=== PATIENT | male | born 1945 | race Caucasian/White ===

== ENCOUNTER → 2022-12-28 | Outpatient (CLI) | payer OTHER, SELFPAY ==
--- NOTE | 2022-12-28 10:42 | ECHOCS_ITS ---
Reason For Study: CAD/ASHD Procedure This was a 2D Doppler, Color Flow transthoracic echocardiogram. The study was technically difficult. Due to body habitus. Contrast injection was performed. Exam performed in department. Left Ventricle Normal LV size. Left ventricular systolic function is normal. The estimated ejection fraction is 60 %. No regional wall motion abnormalities noted. Right Ventricle Normal RV size. Normal systolic function. Atria Normal left atrium. Mitral Valve Normal mitral valve. Tricuspid Valve The tricuspid valve is not well visualized. Mild tricuspid valve insufficiency. Pulmonary artery systolic pressure is 35 mmHg. Aortic Valve Trisinus/trileaflet aortic valve. Pulmonic Valve The pulmonic valve is not well visualized. Great Vessels Normal aortic root. The pulmonary artery is normal size. Normal inferior vena cava. Pericardium/Pleural No pericardial effusion. Medication 22 gauge I.V. with prn adaptor inserted into right arm. Diluted definity 2.0ml given slow IV push to enhance endocardial definition. MMode/2D Measurements & Calculations LVIDd: 6.2 cm IVSd: 1.0 cm Ao root diam: 3.8 cm LVIDs: 4.9 cm LVPWd: 1.1 cm FS: 20.5 % LAV(MOD-bp): 71.5 ml EDV(MOD-sp4): 128.5 ml EDV(MOD-sp2): 61.6 ml LAV(MOD-bp) Indexed: 30.9 ml/m2 ESV(MOD-sp4): 46.9 ml ESV(MOD-sp2): 28.5 ml LAV(MOD-sp2): 67.7 ml EF(MOD-sp4): 63.5 % EF(MOD-sp2): 53.8 % LAV(MOD-sp4): 65.6 ml SV(MOD-sp4): 81.7 ml SV(MOD-sp2): 33.2 ml LA A4 area: 21.2 cm2 LA dimension(2D): 4.1 cm RA A4 area: 20.0 cm2 Time Measurements MV dec time: 0.23 sec Doppler Measurements & Calculations MV E max antelmo: 77.0 cm/sec Lat Peak E' Antelmo: 8.5 cm/sec Med Peak E' Antelmo: 6.3 cm/sec MV A max antelmo: 39.1 cm/sec E/E' lat: 9.0 E/E' med: 12.2 MV E/A: 2.0 Ao V2 max: 121.8 cm/sec LV V1 max: 81.6 cm/sec MV dec slope: 339.5 cm/sec2 Ao max P.9 mmHg LV V1 max P.7 mmHg Ao V2 mean: 85.5 cm/sec LV V1 mean P.5 mmHg Ao mean P.4 mmHg LV V1 mean: 58.0 cm/sec Ao V2 VTI: 31.5 cm LV V1 VTI: 19.9 cm AV (velocity ratio): 0.63 PA V2 max: 70.4 cm/sec TR max antelmo: 276.0 cm/sec TR max P.5 mmHg ECHO/Echo Complete W/ Contrast Interpretation Summary Normal LV size. Left ventricular systolic function is normal. The estimated ejection fraction is 60 %. Mild tricuspid valve insufficiency. Contrast injection was performed. Ordering Physician: LIO VIVAR Referring Physician: Dwayne Luther Performed By: Montse Camarena, ANDRADE, RVT
== END | disposition home or self-care (01) ==
LOC: CVS 10:42
PROVIDERS: PCP Family Medicine
DX: I25.10 Atherosclerotic heart disease of native coronary artery without angina pectoris (principal)
CPT/HCPCS: 93306; Q9957; A4216; C8929

== ENCOUNTER 2024-01-11 22:59 | Observation (INO) | payer MEDICARE, BC, OTHER, SELFPAY ==
[2024-01-11 22:59] VITALS: BP 166/96; PULSE 106; RESP 21; TEMP 36.1; O2SAT 97; BMI 36.6
--- NOTE | 2024-01-11 23:08 | ED.VIS.CHEST ---
HPI History of Present Illness Chief Complaint: Chest Pain Informant: patient and spouse/S.O. Onset/Context/Timing Onset: Today Activity at onset: sudden Timing: Continuous Quality: Positive for Pain and Tightness Current Severity: Moderate Maximum Severity: Moderate Narrative Narrative: Patient presents secondary to chest pain. He reports symptoms started about a half an hour ago when he got up suddenly to go outside. He states this will sometimes happen if he moves too quickly, but usually just resolves after a short time, however tonight is more persistent. He does report some lightheadedness and dizziness. He reports chronic shortness of breath that is not any worse than baseline. Patient does have coronary artery disease history with bypass surgery in 2010 and 2 cardiac stents placed in 2016. He follows with a client experience specialist in [place]. He is currently on baby aspirin which she takes each morning. He is not on Plavix or Brilinta. [facility] Medical History (Updated 01/12/24 @ 02:[address] Lulú Wu MD) Coronary artery disease Heart disease HTN (hypertension) Hyperlipidemia Knee pain Shortness of breath Home Medications aspirin 81 mg tablet,delayed release 81 mg PO DAILY 11/24/23 [History Last Taken Unknown] diclofenac sodium 1 % topical gel 2 g topical ONCE 11/24/23 [History Last Taken Unknown] magnesium 250 mg tablet 250 mg PO DAILY 11/24/23 [History Last Taken Unknown] metoprolol tartrate 25 mg tablet 25 mg PO BID 11/24/23 [History Last Taken Unknown] multivitamin 1 tab PO DAILY 11/24/23 [History Last Taken Unknown] omeprazole 40 mg capsule,delayed release 40 mg PO QDAY 11/24/23 [History Last Taken Unknown] rosuvastatin 10 mg tablet 10 mg PO QHS 11/24/23 [History Last Taken Unknown] ipratropium bromide 21 mcg (0.03 %) nasal spray 2 spray intranasal TID PRN PRN congestion 01/12/24 [History Last Taken Unknown] eesmxkpp-pqkeyinoe-uihtpaya 3.5 mg/mL-10,000 unit/mL-0.1% eye drops 1 drp RIGHT EYE 4X/DAY 01/12/24 [History Last Taken Unknown] Allergy/AdvReac Type Severity Reaction Status Date / Time No Known Allergies Allergy Verified 01/11/24 23:03 Family History Other Heart disease Surgical History History of ankle surgery History of bilateral knee replacement History of coronary artery bypass graft History of heart artery stent Social History Smoking Status: Never smoker alcohol intake: never substance use type: does not use ROS ROS ED Constitutional Constitutional ED: Denies chills or fever(s) Eyes Eyes: Denies discharge from eye(s) ENT ENT ED: Denies discharge from eye(s), rhinorrhea or sore throat Cardiovascular Cardiovascular: Reports chest pain; Denies palpitations Respiratory/Chest Respiratory/Chest: Reports dyspnea; Denies cough Gastrointestinal Gastrointestinal: Denies abdominal pain, nausea or vomiting Musculoskeletal Musculoskeletal: Denies back pain or extremity pain Integumentary Denies Abrasions or rash Neurologic Neurologic: Denies headache(s) or weakness Psychiatric Psychiatric: Denies anxiety or depression Allergic/Immunologic Allergic/Immunologic ED: Denies lip swelling or urticaria EXAM Physical Exam Const Vital Signs: 01/11/24 22:59 01/11/24 23:06 01/11/24 23:14 Temperature 97 F L Temperature Source Temporal Pulse Rate 106 H Respiratory Rate 21 H 18 Respiratory Effort Respiratory Pattern Blood Pressure 166/96 H 147/89 H Blood Pressure Mean 119 108 Pulse Ox 97 99 Oxygen Delivery Method Room Air Room Air Room Air 01/11/24 23:17 01/11/24 23:21 01/11/24 23:30 Temperature Temperature Source Pulse Rate 99 90 Respiratory Rate 13 7 L Respiratory Effort Normal Respiratory Pattern Normal Blood Pressure 130/82 H Blood Pressure Mean 93 Pulse Ox 98 97 Oxygen Delivery Method 01/11/24 23:45 01/12/24 00:00 01/12/24 00:15 Temperature Temperature Source Pulse Rate 89 Respiratory Rate 9 L Respiratory Effort Respiratory Pattern Blood Pressure 135/72 H 132/76 H 157/86 H Blood Pressure Mean 92 91 108 Pulse Ox 96 Oxygen Delivery Method Room Air Room Air 01/12/24 00:25 01/12/24 00:30 01/12/24 00:45 Temperature Temperature Source Pulse Rate 94 88 90 Respiratory Rate 19 H 11 L 18 Respiratory Effort Respiratory Pattern Blood Pressure 123/72 H Blood Pressure Mean 87 Pulse Ox 96 96 99 Oxygen Delivery Method Room Air 01/12/24 01:00 01/12/24 01:15 01/12/24 01:30 Temperature Temperature Source Pulse Rate 92 91 88 Respiratory Rate 19 H 23 H 18 Respiratory Effort Respiratory Pattern Blood Pressure 127/75 H 120/77 Blood Pressure Mean 88 91 Pulse Ox 95 93 96 Oxygen Delivery Method Room Air 01/12/24 01:45 Temperature Temperature Source Pulse Rate 88 Respiratory Rate 19 H Respiratory Effort Respiratory Pattern Blood Pressure Blood Pressure Mean Pulse Ox 95 Oxygen Delivery Method Positive well nourished and well developed General Appearance ED: well developed HEENT Reports moist mucous membranes Eyes EOMs intact bilaterally Chest Wall inspection of chest normal and palpation of chest normal Resp normal respiratory effort and clear to auscultation bilaterally Cardio regular rhythm Rate: tachycardic GI soft to palpation and non-tender Extremity normal to inspection Neuro oriented x3 and no sensory deficits noted Sensorium / Orientation: awake and alert Psych mental status grossly normal Skin no rashes or lesions noted Heart Score History: Moderately Suspicious ECG: Normal Age: >/= 65 years Risk Factors: >/= 3 Risk Factors or History of CAD Troponin: </= Normal Limit Score: 5 MDM MDM MDM Narrative Medical decision making narrative: Patient placed on cardiac technician. IV line initiated. EKG obtained to evaluate for cardiac arrhythmia/ischemia. Labwork obtained to evaluate for leukocytosis, anemia, and electrolyte derangement. Patient given 3 baby aspirin here as he did take 1 this morning. He is given a small dose of morphine and Zofran to help with pain as well. History & Record Review Discussion w/independent historian: Patient and Significant other Additional record(s) reviewed:: Prior outpatient record and Prior labs Lab Data Attestation: I reviewed the patient's lab results. Labs: Laboratory Results - last 24 hr 01/11/24 01/12/24 23:05 01:15 WBC 6.2 RBC 4.66 Hgb 15.4 Hct 44.7 MCV 95.9 H MCH 33.0 H MCHC 34.5 RDW Std Deviation 48.7 H RDW Coeff of Minor 13.8 Plt Count 181 MPV 9.6 Immature Gran % (Auto) 0.600 Neut % (Auto) 47.3 Lymph % (Auto) 38.5 [place] % (Auto) 9.9 Eos % (Auto) 3.2 Baso % (Auto) 0.5 Absolute Neuts (auto) 2.9 Absolute Lymphs (auto) 2.37 Nucleated RBC % 0 D-Dimer Quant (PE/DVT) 1.98 H* Sodium 139 Potassium 3.3 L Chloride 108 H Carbon Dioxide 27.0 Anion Gap 4 L BUN 19 H Creatinine 0.95 Estim Creat Clear Calc 81.64 Est GFR (MDRD) Af Amer 99 Est GFR (MDRD) Non-Af 81 BUN/Creatinine Ratio 20.0 Glucose 159 H Calcium 9.2 Troponin I High Sens 6 34 Radiography Chest X-Ray - ED: 1 View, Read by ED Physician, Chronic Changes and No Infiltrates Diagnostic Testing: Clinical Impression(s) from Imaging Studies Chest X-Ray 01/11/24 23:25 IMPRESSION: No evidence of active intrathoracic disease. Electronically Signed: Marisol Bryan MD at 23:50 EDT , Chest CTA 01/12/24 23:44 IMPRESSION: No evidence of pulmonary emboli. Electronically Signed: Marisol Bryan MD at 1:00 EDT , EKG Initial EKG: Attestation: I personally reviewed and interpreted this EKG as follows: Interpretation: Sinus Tachycardia (Sinus tachycardia at 106 with incomplete right bundle. No obvious ST change.) Treatment and Re-Evaluation :: CBC was normal white count 6.2 with a hemoglobin of 15.4. Differential unremarkable. Chemistry studies reveal slightly low potassium at 3.3 and this was replaced orally. Renal function is normal. Glucose is 159. Initial troponin is 6. D-dimer returns elevated at 1.98. Portable chest x-ray per my interpretation reveals chronic changes with no focal infiltrate. Radiology interpretation reviewed and agrees. Patient does undergo CTA of the chest given his elevated D-dimer and this reveals no evidence of pulmonary embolism. 2-hour repeat troponin is obtained and troponin has risen from 6-34. While both values are still considered in the normal range, his delta is greater than 20. This is discussed with patient and at bedside. Did recommend observation for cycling of enzymes and further evaluation. I will speak with the hospitalist. At this time patient states he is chest pain-free. Discharge Plan Triage Chief Complaint: Chest Pain ED Provider: Lulú Wu Dx/Rx/DC Orders Clinical Impression: Chest pain Prescriptions: No Action rosuvastatin 10 mg tablet 10 mg PO QHS metoprolol tartrate 25 mg tablet 25 mg PO BID omeprazole 40 mg capsule,delayed release(DR/EC) 40 mg PO QDAY aspirin 81 mg tablet,delayed release (DR/EC) 81 mg PO DAILY multivitamin Tablet 1 tab PO DAILY magnesium 250 mg tablet 250 mg PO DAILY diclofenac sodium 1 % gel 2 g topical ONCE Rx Instructions: apply to single elbow, wrist or hand; for hand includes palm/fingers/back of hand neomycin-polymyxin B-dexameth 3.5mg/mL-10,000 unit/mL-0.1 % drops,suspension 1 drp RIGHT EYE 4X/DAY ipratropium bromide 21 mcg (0.03 %) spray,non-aerosol 2 spray INTRANASAL TID PRN PRN (Reason: congestion) Primary Care Provider: Dwayne Luther Referrals: Dwayne Luther MD [Primary Care Provider] - Disposition Disposition: Acute Care Hospital [facility]
[2024-01-11 23:14] VITALS: BP 147/89; RESP 18; O2SAT 99
[2024-01-11] MEDS: Ondansetron 4 MG/2 ML Vial IV (23:14)
[2024-01-11] MEDS: Morphine 4 MG/ML Syringe 2 MG IV (23:14)
[2024-01-11] MEDS: Aspirin 81 MG TAB.CHEW 243 MG PO (23:14)
[2024-01-11 23:21] VITALS: PULSE 99; RESP 13; O2SAT 98
[2024-01-11 23:22] LABS: Absolute Lymphocyte Count 2.37 X10^3/uL (0.83-4.51); Absolute Neutrophil Count 2.9 X10^3/uL (2.0-7.7); Basophil# 0.03 X10^3/uL; Basophil% 0.5 % (0-1); Eosinophils% 3.2 % (0-5); Hematocrit 44.7 % (40-54); Hemoglobin 15.4 g/dL (13.0-16.5); Lymphocyte # 2.37 X10^3/ul (0.83-4.51); Lymphocyte % 38.5 % (19-41); Mean Corp Hgb Conc 34.5 g/dL (32-36); Mean Corpuscular Volume 95.9 fL (80-94); Mean Platelet Vol. 9.6 fl (6.2-12.0); Monocyte# 0.61 X10^3/uL; Monocyte% 9.9 % (0-10); NRBC Flagged by Analyzer 0 % (0-5); Neutrophil # 2.91 X10^3/uL (2.7-7.7); Neutrophil % 47.3 % (47-70); Platelet Count 181 K/mm3 (150-450); RBC Distribution Width CV 13.8 % (11.6-14.6); RBC Distribution Width SD 48.7 fl (35.1-43.9); Red Blood Count 4.66 M/mm3 (4.6-6.2); White Blood Count 6.2 K/mm3 (4.4-11.0)
--- NOTE | 2024-01-11 23:25 | RAD_ITS ---
INDICATION: chest pain EXAMINATION/TECHNIQUE: X-RAY - XR Chest 1 View AP portable. 11:26 PM COMPARISON: None. FINDINGS: LINES/DEVICES: None. LUNGS: No consolidation. No pneumothorax. MEDIASTINUM: Unremarkable. CARDIAC SILHOUETTE: Top normal size for technique. Sternal wires. BONES AND SOFT TISSUES: No acute abnormalities. Degenerative changes in the dorsal spine. RAD/Chest 1 View (Portable) IMPRESSION: No evidence of active intrathoracic disease. Electronically Signed: Marisol Bryan MD at 23:50 EDT ,
[2024-01-11 23:30] VITALS: BP 130/82; PULSE 90; RESP 7; O2SAT 97
[2024-01-11 23:35] LABS: D-Dimer Quantitative (DVT/PE) 1.98 FEU/ug/m (0.27-0.49)
[2024-01-11 23:41] LABS: Anion Gap 4 (5-15); BUN 19 mg/dL (7-18); Calcium,Total 9.2 mg/dL (8.5-10.1); Chloride 108 mmol/L (98-107); Creatinine, Serum 0.95 mg/dL (0.70-1.30); EST Glomerular Filtration Rate 81 mL/min (>60); Est Glom Filt Rate - Afr Amer 99 mL/min (>60); Estimated Creatinine Clearance 81.64 ml/min; Glucose 159 mg/dL (74-106); Potassium 3.3 mmol/L (3.5-5.1); Sodium Level 139 mmol/L (136-145); Troponin-I HS (w/2H Reflex) 6 pg/mL (3.0-78.0)
[2024-01-11 23:45] VITALS: BP 135/72
[2024-01-12] VITALS (15 sets, daily range): BP systolic 118–157; BP diastolic 65–86; PULSE 56–94; RESP 9–23; TEMP 36.3–36.9; O2SAT 93–100; BMI 38.5
[2024-01-12] MEDS: Potassium Chloride Oral Tablet 20 MEQ 40 MEQ PO (00:40)
[2024-01-12 01:12] LABS: Reflex Troponin-HS? (from REC) Y
[2024-01-12 01:51] LABS: Troponin-I HS 34 pg/mL (3.0-78.0)
--- NOTE | 2024-01-12 02:09 | HP.PCM.HOS_ITS ---
HPI - General General Date of Admission: 01/12/24 Date of Service: 01/12/24 Chief Complaint: Chest Pain HPI Narrative ROWAN DAWN, is a 78 M with a past medical history of essential hypertension, hyperlipidemia, obesity; with BMI of 36.6 this admission, CAD; s/p CABG (2017) and 2 cardiac stents (2015) on chronic BASA followed by his ca rdiologist in [place], [facility], history of ankle surgery and osteoarthritis; with bilateral total knee replacements who presents to [facility] ER complaining of chest pain. Mr. Dawn reports his symptoms began approximately 30 minutes prior to arrival with the abrupt onset of chest pain that was substernal, tight, moderate and persistent with nothing seeming to make the pain better or worse after he tried to hurry and watch the [place] He admits to similar symptoms previously but they usually resolve after a short period of time once he rested. He also admits to chronic shortness of breath that is unchanged from previous. He states he is taking his baby aspirin every morning routinely but he is not on any other antiplatelet or anticoagulant agents. He denies associated fever, chills, nausea, vomiting, diaphoresis, palpitations or heart racing. In the ER he was noted to have an initial troponin of 6 pg/mL followed by a second troponin of 34 pg/mL (with a delta of greater than 20) as a criteria for admission under observation status complicated by an elevated D-dimer of 1.98 present on admission followed by a negative CTA of the chest for PE along with mild hypokalemia of 3.3 mmol/L present on admission and he was then admitted to the PCU under observation status for stay is expected to be less than 2 m idnights. [facility] Medical History Coronary artery disease Heart disease HTN (hypertension) Hyperlipidemia Knee pain Shortness of breath Home Medications aspirin 81 mg tablet,delayed release 81 mg PO DAILY 11/24/23 [History Last Taken Unknown] diclofenac sodium 1 % topical gel 2 g topical ONCE 11/24/23 [History Last Taken Unknown] magnesium 250 mg tablet 250 mg PO DAILY 11/24/23 [History Last Taken Unknown] metoprolol tartrate 25 mg tablet 25 mg PO BID 11/24/23 [History Last Taken Unknown] multivitamin 1 tab PO DAILY 11/24/23 [History Last Taken Unknown] omeprazole 40 mg capsule,delayed release 40 mg PO QDAY 11/24/23 [History Last Ta [place] Unknown] rosuvastatin 10 mg tablet 10 mg PO QHS 11/24/23 [History Last Taken Unknown] cholecalciferol (vitamin D3) 50 mcg (2,000 unit) tablet (D3 DOTS) 4,000 unit PO DAILY 01/12/24 [History Last Taken Unknown] Allergy/AdvReac Type Severity Reaction Status Date / Time No Known Allergies Allergy Verified 01/11/24 23:03 Family History Other Heart disease Surgical History History of ankle surgery History of bilateral knee replacement History of coronary artery bypass graft History of heart artery stent Social History Smoking Status: Never smoker alcohol intake: never substance use type: does not use ROS ROS Narrative Review of systems: General: Patient denies fever or chills. HENT: Denies headache, denies stuffy nose, denies sore throat EYES: Denies changes in vision or discharge from eyes. Resp: Patient admits to shortness of breath at rest as per HPI. Cardiac: Patient admits to chest pain as per HPI. GI: Denies abdominal pain, denies changes in bowel, had some nausea : Denies changes in urination Extremity: Denies swelling Musculoskeletal: Feels somewhat generally weak and unwell but denies arthralgias or myalgias. Neuro: Patient denies headache, paresthesias or focal neurologic weakness Heme: Denies any bleeding or bruising Skin: Denies rashes Psychiatric: No complaints voiced related to uncontrolled depression or anxiety Endocrine: No polyuria, polydipsia or polyphagia. The rest of the 14 point ROS was negative except for positives in HPI. Vital Signs Vital Signs Vital Signs: 01/11/24 22:59 01/11/24 23:06 01/11/24 23:14 Temperature 97 F L Temperature Source Temporal Pulse Rate 106 H Respiratory Rate 21 H 18 Respiratory Effort Respiratory Pattern Blood Pressure 166/96 H 147/89 H Blood Pressure Mean 119 108 Pulse Ox 97 99 Oxygen Delivery Method Room Air Room Air Room Air 01/11/24 23:17 01/11/24 23:21 01/11/24 23:30 Temperature Temperature Source Pulse Rate 99 90 Respiratory Rate 13 7 L Respiratory Effort Normal Respiratory Pattern Normal Blood Pressure 130/82 H Blood Pressure Mean 93 Pulse Ox 98 97 Oxygen Delivery Method 01/11/24 23:45 01/12/24 00:00 01/12/24 00:15 Temperature Temperature Source Pulse Rate 89 Respiratory Rate 9 L Respiratory Effort Respiratory Pattern Blood Pressure 135/72 H 132/76 H 157/86 H Blood Pressure Mean 92 91 108 Pulse Ox 96 Oxygen Delivery Method Room Air Room Air 01/12/24 00:25 01/12/24 00:30 01/12/24 00:45 Temperature Temperature Source Pulse Rate 94 88 90 Respiratory Rate 19 H 11 L 18 Respiratory Effort Respiratory Pattern Blood Pressure 123/72 H Blood Pressure Mean 87 Pulse Ox 96 96 99 Oxygen Delivery Method Room Air 01/12/24 01:00 01/12/24 01:15 01/12/24 01:30 Temperature Temperature Source Pulse Rate 92 91 88 Respiratory Rate 19 H 23 H 18 Respiratory Effort Respiratory Pattern Blood Pressure 127/75 H 120/77 Blood Pressure Mean 88 91 Pulse Ox 95 93 96 Oxygen Delivery Method Room Air 01/12/24 01:45 01/12/24 02:00 Temperature Temperature Source Pulse Rate 88 84 Respiratory Rate 19 H 23 H Respiratory Effort Respiratory Pattern Blood Pressure 151/83 H Blood Pressure Mean 100 Pulse Ox 95 97 Oxygen Delivery Method Room Air Weight Weight: 255 lb Body Mass Index (BMI) 36.6 Physical Exam Const alert, oriented x3, no apparent distress, average body habitus and healthy appearing General Appearance: cooperative HEENT normocephalic, head/scalp atraumatic, hearing grossly normal bilaterally and moist oral mucous membranes Eyes PERRL and EOMs intact bilaterally Neck no lymphadenopathy and supple Resp normal respiratory effort, no retractions, no use of accessory muscles and clear to auscultation bilaterally Cardio regular rate and regular rhythm GI normal to inspection, nondistended, normoactive bowel sounds, soft to palpation, non-tender and non-distended Extremity normal to inspection, full ROM and no clubbing, cyanosis or edema Skin Skin Narrative: Patient has no evidence of jaundice or rash. Neuro oriented x3, CN's II-XII intact bilaterally, moves all extremities and no focal motor deficits Sensorium / Orientation: awake, alert, oriented to person, oriented to place and oriented to time Speech: speech normal Motor Exam: strength 5/5 throughout Psych affect normal Results Medical Records Data Attestation: I reviewed the patient's medical records Lab / Micro Data Attestation: I reviewed the patient's lab results. 01/11/24 23:05 01/11/24 23:05 Labs: Laboratory Results - last 24 hr 01/11/24 23:05: WBC 6.2, RBC 4.66, Hgb 15.4, Hct 44.7, MCV 95.9 H, MCH 33.0 H, MCHC 34.5, RDW Std Deviation 48.7 H, RDW Coeff of Minor 13.8, Plt Count 181, MPV 9.6, Immature Gran % (Auto) 0.600, Neut % (Auto) 47.3, Lymph % (Auto) 38.5, [place] % (Auto) 9.9, Eos % (Auto) 3.2, Baso % (Auto) 0.5, Absolute Neuts (auto) 2.9, Absolute Lymphs (auto) 2.37, Nucleated RBC % 0, D-Dimer Quant (PE/DVT) 1.98 H*, Sodium 139, Potassium 3.3 L, Chloride 108 H, Carbon Dioxide 27.0, Anion Gap 4 L, BUN 19 H, Creatinine 0.95, Estim Creat Clear Calc 81.64, Est GFR (MDRD) Af Amer 99, Est GFR (MDRD) Non-Af 81, BUN/Creatinine Ratio 20.0, Glucose 159 H, Calcium 9.2, Troponin I High Sens 6 01/12/24 01:15: Troponin I High Sens 34 Imaging Radiology Impression Chest X-Ray 01/11/24 23:25 IMPRESSION: No evidence of active intrathoracic disease. Electronically Signed: Marisol Bryan MD at 23:50 EDT , Chest CTA 01/12/24 23:44 IMPRESSION: No evidence of pulmonary emboli. Electronically Signed: Marisol Bryan MD at 1:00 EDT Reading Location ID and State: [id number] Tel , Service support , Assessment & Plan Assessment/Plan (1) Chest pain: QUALIFIERS: Chest pain type: unspecified Qualified Code(s): R07.9 - Chest pain, unspecified (2) D-dimer, elevated: (3) Hypokalemia: (4) History of coronary artery bypass graft: (5) HTN (hypertension): QUALIFIERS: Hypertension type: primary hypertension Qualified Code(s): I10 - Essential (primary) hypertension (6) Hyperlipidemia: QUALIFIERS: Hyperlipidemia type: unspecified Qualified Code(s): E78.5 - Hyperlipidemia, unspecified PLAN: Plan 1. 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 Serialize troponin. Check echocardiogram to evaluate LVEF. Check Lexiscan nuclear stress test to evaluate for underlying ischemia. Give nitroglycerin as needed anginal type chest pain. Give morphine IV as needed for severe (level 6-10/10) pain. 2. Elevated D-dimer of 1.98 present on admission followed by a negative CTA of the chest for PE complicating #1 - Check lower extremity Dopplers in a.m. to ensure no signs of DVT. 3. Hypokalemia of 3.3 mmol/L present on admission compounding #1 & #2 - Give supplemental KCl and then recheck level in the a.m. to ensure improvement. 4. Essential hypertension - Resume current regimen plus give IV hydralazine as needed for systolic blood pressure greater than 160 mmHg. 5. Hyperlipidemia - Continue statin and check lipid profile in light of #1. 6. Obesity; with BMI of 36.6 this admission - Weight loss will be recommended. Check TSH. 7. GERD - Resume PPI as previous. 8. History of ankle surgery - Noted. 9. Osteoarthritis; with bilateral total knee replacements - Stable. Give Tylenol as needed for [id number] (level 1-5 out of 10) pain or fever. 10. DVT prophylaxis - Lovenox 40 mg subcu daily. Total time: Approximately 75 minutes. Charges/Coding Visit Charges OBSV E&M: 58935 Observ/hosp same date L2
[2024-01-12 05:49] LABS: Cholesterol 120 mg/dL (200); High Density Lipoprotein 34 mg/dL; Thyroid Stim Hormone (TSH) 5.46 uIU/mL (0.358-3.74); Triglycerides 126 mg/dL; Troponin-I HS 35 pg/mL (3.0-78.0); Very Low Density Lipoprotein 25 mg/dL (5-40)
[2024-01-12 08:10] LABS: Hemoglobin A1c 5.3 % (3.8-5.6)
[2024-01-12] MEDS: Cholecalciferol (VIT D3) 25 MCG TABLET (1,000 UNITS) 100 MCG PO (09:54)
[2024-01-12] MEDS: Multivitamins,Therapeutic Tablet 1 TABLET PO (09:54)
[2024-01-12] MEDS: Metoprolol Tartrate 25 MG Tablet PO (09:54)
[2024-01-12] MEDS: Aspirin E.C. 81 MG Tablet PO (09:54)
[2024-01-12] MEDS: Pantoprazole Sodium 40 MG Tablet PO (09:55)
--- NOTE | 2024-01-12 10:13 | STRESSREP_ITS ---
Stress Test Report Date: 01/12/2024 Procedure: Pharmacologic stress nuclear imaging study Indications: Chest pain Consent: Per the patient Procedure: The patient underwent pharmacologic (Regadenoson 0.4mg ) evaluation with a peak heart rate of 90 beats per minute (60%predicted maximal heart rate) and a peak blood pressure of 124/80 mmHg. The baseline ECG demonstrated sinus rhythm. The peak pharmacologic ECG demonstrated no ischemic changes. There were no cardiac dysrhythmias pretest, during pharmacologic infusion, or recovery. There was no complaint of chest discomfort during pharmacologic infusion or recovery. The patient was injected with 14.8 millicuries of technetium 99m Cardiolite and subsequently rest SPECT Cardiolite nuclear imaging was obtained in the horizontal long, vertical long, and short axis views. The patient underwent pharmacologic (Regadenoson) evaluation. The patient was injected with 45.0 millicuries of technetium 99m Cardiolite and subsequently stress SPECT Cardiolite nuclear imaging was obtained in the horizontal long, vertical long, and short axis views. A gated Cardiolite study at peak stress was obtained. The examination was stopped secondary to completion of protocol. Rest and stress SPECT Cardiolite nuclear imaging status post realignment, normalization, and attenuation correction demonstrate no fixed or reversible perfusion defects. There is end systolic thickening and brightening. The gated Cardiolite study demonstrates myocardial thickening and inward wall motion. The reported LVEF is 71%. Impression: 1. Pharmacologic (Regadenoson) evaluation 2. Peak pharmacologic ECG with no ischemic changes. 3. There were no cardiac dysrhythmias pretest, during pharmacologic infusion, or recovery. 5. Rest and stress SPECT Cardiolite nuclear imaging demonstrate relative uniform tracer uptake and myocardial perfusion appearing within normal limits. 6. The gated Cardiolite study reports an LVEF of 71%. This note was generated with [employer] software. It may contain incorrect words, spelling, and punctuation that were not noted in checking the note before signing.
--- NOTE | 2024-01-12 11:37 | DCINST_ITS ---
Discharge Instructions Diet Discharge Diet: Low fat / Low cholesterol Activity Discharge Activity: Return to Normal Activity Dressing / Incision Call your doctor if you observe: Fever of 101 or Higher, Shortness of breath, Dizziness, Fainting spells, Swelling in the ankles, Chest pain and Increased palpitations (irregular heartbeat) Follow Up Care Test Results: Test results from this visit will be discussed in further detail at your follow- up appointment, if applicable. Discharge Plan Admission Admit Date/Time: 01/12/24 02:27 Attending Provider: Terrance Deleon Primary Care Provider: Dwayne Luther Consulting Providers: Alen Stone Discharge Orders/Prescriptions Prescriptions: Continued rosuvastatin 10 mg tablet 10 mg PO QHS metoprolol tartrate 25 mg tablet 25 mg PO BID omeprazole 40 mg capsule,delayed release(DR/EC) 40 mg PO QDAY aspirin 81 mg tablet,delayed release (DR/EC) 81 mg PO DAILY multivitamin Tablet 1 tab PO DAILY magnesium 250 mg tablet 250 mg PO DAILY diclofenac sodium 1 % gel 2 g topical ONCE Rx Instructions: apply to single elbow, wrist or hand; for hand includes palm/fingers/back of hand cholecalciferol (vitamin D3) [D3 DOTS] 50 mcg (2,000 unit) tablet 4,000 unit PO DAILY Referrals / Follow Up: Dwayne Luther MD [Primary Care Provider] - Within 1 Week Disposition Disposition (needs filled in before D/C Order can be placed): Home, Self Care
--- NOTE | 2024-01-12 12:33 | NURSING ---
1216 Pt notified that an echo and venous doppler was ordered and that he can stay to get it done prior to leaving. Pt refused. Pt discharged. Taken out via wheelchair
--- NOTE | 2024-01-12 14:30 | DS.PCM_ITS ---
Providers Date of Admission: 01/12/24 Primary Care Physician: Dr. Dwayne Luther MD Reason For Visit: CHEST PAIN, ELEVATED D-DIMER AND HYPOKALEMIA Diagnosis Discharge Diagnosis (1) Chest pain: Status: Acute Code(s): R07.9 - Chest pain, unspecified Qualifiers: Chest pain type: unspecified Qualified Code(s): R07.9 - Chest pain, unspecified (2) D-dimer, elevated: Status: Acute Code(s): R79.89 - Other specified abnormal findings of blood chemistry (3) Hypokalemia: Status: Acute Code(s): E87.6 - Hypokalemia (4) History of coronary artery bypass graft: Status: Acute Code(s): Z95.1 - Presence of aortocoronary bypass graft (5) HTN (hypertension): Status: Chronic Code(s): I10 - Essential (primary) hypertension Qualifiers: Hypertension type: primary hypertension Qualified Code(s): I10 - Essential (primary) hypertension (6) Hyperlipidemia: Status: Acute Code(s): E78.5 - Hyperlipidemia, unspecified Qualifiers: Hyperlipidemia type: unspecified Qualified Code(s): E78.5 - Hyperlipidemia, unspecified Medications at Discharge Home Medications aspirin 81 mg tablet,delayed release 81 mg PO DAILY 11/24/23 diclofenac sodium 1 % topical gel 2 g topical ONCE 11/24/23 magnesium 250 mg tablet 250 mg PO DAILY 11/24/23 metoprolol tartrate 25 mg tablet 25 mg PO BID 11/24/23 multivitamin 1 tab PO DAILY 11/24/23 omeprazole 40 mg capsule,delayed release 40 mg PO QDAY 11/24/23 rosuvastatin 10 mg tablet 10 mg PO QHS 11/24/23 cholecalciferol (vitamin D3) 50 mcg (2,000 unit) tablet (D3 DOTS) 4,000 unit PO DAILY 01/12/24 Hospital Course Operations None Procedures Nuclear stress test Summary of Care Provided Minutes Spent on Discharge: 33 Hospital Course: Per HPI: ROWAN BELLO, is a 78 M with a past medical history of essential hypertension, hyperlipidemia, obesity; with BMI of 36.6 this admission, CAD; s/p CABG (2016) and 2 cardiac stents (2015) on chronic BASA 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 Mr. Bello reports his symptoms began approximately 30 minutes prior to arrival with the abrupt onset of chest pain that was substernal, tight, moderate and persistent with nothing seeming to make the pain better or worse after he tried to hurry and watch the [place] He admits to similar symptoms previously but they usually resolve after a short period of time once he rested. He also admits to chronic shortness of breath that is unchanged from previous. He states he is taking his baby aspirin every morning routinely but he is not on any other antiplatelet or anticoagulant agents. He denies associated fever, chills, nausea, vomiting, diaphoresis, palpitations or heart racing. In the ER he was noted to have an initial troponin of 6 pg/mL followed by a second troponin of 34 pg/mL (with a delta of greater than 20) as a criteria for admission under observation status complicated by an elevated D-dimer of 1.98 p resent on admission followed by a negative CTA of the chest for PE along with mild hypokalemia of 3.3 mmol/L present on admission and he was then admitted to the PCU under observation status for stay is expected to be less than 2 midnights. Hospital Course: 1. Chest pain/CAD status post CABG/essential HTN/HLD?78-year-old male with a history of coronary artery disease status post CABG presented to the hospital with chest pain. He was found to have an elevated D-dimer and CTA on admission was negative for PE. He denies any unilateral lower extremity edema or calf beatriz n however a Doppler ultrasound was ordered as well as a stress test and an echo. The stress test was unremarkable and he had a family reunion planned for today and tomorrow and he did not want to stay for the echo or the Doppler. I discussed with him the risks of this decision he expressed understanding of the risk and benefits and would like to go home today. He is already on an aspirin as well as Crestor, and metoprolol so he was discharged on his medications without any changes. I do recommend that he follow-up with his PCP in 3 to 5 days and if he does develop calf pain or repeated chest pain with activity that he is to return to the hospital, he acknowledged this as did his . Physical Exam Narrative General: Alert, Oriented x3, Cooperative, No apparent distress HEENT: Atraumatic, PERRLA, EOMI, Normocephalic Oral: Moist Mucosa Neck: Supple, No JVD Lungs: Clear to auscultation, Normal air movement, No rhonchi, No wheeze, No rales Cardiovascular: Regular rate, Regular Rhythm, Normal S1, Normal S2, No murmurs Abdomen: Soft, Non Tender, Non-Distended, No Hepato-splenomegaly Extremities: Nonpitting edema, Capillary Refill Less than 3 Seconds Skin: No rashes, No breakdown Musculoskeletal: No Tenderness to Palpation of Joints or Extremities Neurological: No focal neurological deficits, Motor Exam 5/5 strength throughout, Sensory exam intact to light touch and pain Psych/Mental Status: Normal Affect, Appropriate Weight / BMI Weight Weight: 260 lb 12.909 oz Body Mass Index (BMI) 38.5 ABG / Lab / Microbiology Data 01/11/24 23:05 01/11/24 23:05 Laboratory: Laboratory Results - last 24 hr 01/11/24 23:05: WBC 6.2, RBC 4.66, Hgb 15.4, Hct 44.7, MCV 95.9 H, MCH 33.0 H, MCHC 34.5, RDW Std Deviation 48.7 H, RDW Coeff of Minor 13.8, Plt Count 181, MPV 9.6, Immature Gran % (Auto) 0.600, Neut % (Auto) 47.3, Lymph % (Auto) 38.5, Schuyler % (Auto) 9.9, Eos % (Auto) 3.2, Baso % (Auto) 0.5, Absolute Neuts (auto) 2.9, Absolute Lymphs (auto) 2.37, Nucleated RBC % 0, D-Dimer Quant (PE/DVT) 1.98 H*, Sodium 139, Potassium 3.3 L, Chloride 108 H, Carbon Dioxide 27.0, Anion Gap 4 L, BUN 19 H, Creatinine 0.95, Estim Creat Clear Calc 81.64, Est GFR (MDRD) Af Amer 99, Est GFR (MDRD) Non-Af 81, BUN/Creatinine Ratio 20.0, Glucose 159 H, Hemo globin A1c 5.3, Calcium 9.2, Troponin I High Sens 6 01/12/24 01:15: Troponin I High Sens 34 01/12/24 05:10: Troponin I High Sens 35, Triglycerides 126 01/12/24 05:10: Triglycerides Cancelled, Cholesterol 120 01/12/24 05:10: Cholesterol Cancelled, LDL Cholesterol 61 01/12/24 05:10: LDL Cholesterol Cancelled, VLDL Cholesterol 25 01/12/24 05:10: VLDL Cholesterol Cancelled, HDL Cholesterol 34 L 01/12/24 05:10: HDL Cholesterol Cancelled, TSH 5.46 H 01/12/24 05:10: TSH Cancelled Radiography Diagnostic Testing: Radiology Impression Chest X-Ray 01/11/24 23:25 IMPRESSION: No evidence of active intrathoracic disease. Electronically Signed: Marisol Bryan MD at 23:50 EDT , Chest CTA 01/12/24 23:44 IMPRESSION: No evidence of pulmonary emboli. Electronically Signed: Marisol Bryan MD at 1:00 EDT , D/C Instructions Discharge Diet: Low fat / Low cholesterol Call your doctor if you observe: Fever of 101 or Higher, Shortness of breath, Dizziness, Fainting spells, Swelling in the ankles, Chest pain and Increased palpitations (irregular heartbeat) Meaningful Use Info Meaningful Use Meaningful Use Diagnoses (Choose all that apply): None applicable Ischemic Stroke Statin Dosing Therapy Reference: STATIN DOSE THERAPY REFERENCE: * Patients > 75 years receive moderate or high dose statin therapy. * Patients 75 years or YOUNGER should receive HIGH intensity statin dose unless contraindicated. You will be required to document reason for non-treatment if statin daily dose does not meet guidelines. HIGH DOSE STATIN THERAPY DAILY Atorvastatin > than or = to 40 mg Rosuvastatin > than or = to 20 mg Amlodipine + Atorvastatin > than or = to 2.5/40 mg Ezetimibe + Simvastatin 10/80 mg Simvastatin 80mg Discharge Plan Admission Admit Date/Time: 05/11/24 02:27 Attending Provider: Terrance Deleon Primary Care Provider: Dwayne Luther Consulting Providers: Rowan Stone Discharge Orders/Prescriptions Prescriptions: Continued rosuvastatin 10 mg tablet 10 mg PO QHS metoprolol tartrate 25 mg tablet 25 mg PO BID omeprazole 40 mg capsule,delayed release(DR/EC) 40 mg PO QDAY aspirin 81 mg tablet,delayed release (DR/EC) 81 mg PO DAILY multivitamin Tablet 1 tab PO DAILY magnesium 250 mg tablet 250 mg PO DAILY diclofenac sodium 1 % gel 2 g topical ONCE Rx Instructions: apply to single elbow, wrist or hand; for hand includes palm/fingers/back of hand cholecalciferol (vitamin D3) [D3 DOTS] 50 mcg (2,000 unit) tablet 4,000 unit PO DAILY Referrals / Follow Up: Dwayne Luther MD [Primary Care Provider] - Within 1 Week Disposition Disposition (needs filled in before D/C Order can be placed): Home, Self Care Charges/Coding Visit Charges Inpatient E&M: 38077 Disch Hosp >30min
--- NOTE | 2024-01-12 23:44 | CT_ITS ---
STUDY: CTA CHEST REASON FOR EXAM: Male, 78 years old. pulmonary embolism RADIATION DOSAGE (If Supplied By Facility): CTDIvol = ( 26.50 ) mGy, DLP = ( 730.13 ) mGycm TECHNIQUE: The examination was performed with the intravenous administration of IV 100mL Isovue-370. Post-processing of the angiographic images was performed, with multiplanar reformation and 3D reconstruction. Individualized dose optimization techniques were used for this CT. COMPARISON: None. FINDINGS: LUNGS: No consolidation. PLEURA: No pleural effusion. No pneumothorax. PULMONARY VESSELS: No pulmonary emboli identified. MEDIASTINUM: Unremarkable. HEART: Enlarged. Sternal wires. AORTA/GREAT VESSELS: Thoracic aorta is normal caliber. No aneurysm or dissection. UPPER ABDOMEN: No acute findings. Gallstones in the gallbladder. BONES/SOFT TISSUES: No acute findings. OTHER: None. CT/CTA Chest W/WO Contrast IMPRESSION: No evidence of pulmonary emboli. Electronically Signed: Marisol Bryan MD at 1:00 EDT ,
== END 2024-01-12 12:20 | disposition home or self-care (01) ==
LOC: ED 01-12 02:04 → ICU 01-12 04:55
PROVIDERS: Admitting Provider Internal Medicine; Emergency Provider Emergency Medicine; PCP Family Medicine; Visit Provider Family Medicine
DX: R07.89 Other chest pain (principal); E87.6 Hypokalemia; I10 Essential (primary) hypertension; Z79.82 Long term (current) use of aspirin; R79.89 Other specified abnormal findings of blood chemistry; I25.10 Atherosclerotic heart disease of native coronary artery without angina pectoris; K21.9 Gastro-esophageal reflux disease without esophagitis; E78.5 Hyperlipidemia, unspecified; R06.02 Shortness of breath; Z95.5 Presence of coronary angioplasty implant and graft; R42 Dizziness and giddiness; Z95.1 Presence of aortocoronary bypass graft; Z79.899 Other long term (current) drug therapy; E66.9 Obesity, unspecified; Z68.36 Body mass index [BMI] 36.0-36.9, adult
CPT/HCPCS: 71045; 71275; 78452; 80048; 80061; 83036; 84443; 84484; 85025; 85379; 93005; 93017; 96374; 96375; 99221; 99285; A9500; Q9967; A4216; G0378; J2405; J2785

== ENCOUNTER 2024-11-10 09:00 | Outpatient (RCR) | payer MEDICARE, BC, OTHER, SELFPAY ==
--- NOTE | 2024-04-29 16:47 | HP.PTEVAL ---
Patient's Visit Information Visit Information Visit Information: ROWAN DAWN is a 79 year old M referred to Physical Therapy by ROSA CALI with a diagnosis of R TKA Revision 04/07/24. Date of Evaluation: 04/29/24 Physical Therapist: Ross Sosa, PT, ATC Visit Plan Frequency: 2x /Week Duration: 2 Weeks Plan: R LE stretching and strengthening, balance and proprio, gait training, sit to stand training, nustep, and HEP Subjective Subjective: DOS: 04/07/24. Pt reports he had a R knee TKA revision performed at that time. Pt reports he had a R TKA performed in 2008 which eventually wore out. Pt reports he had Home health for 2 weeks secondary to his pain and instability. Pt reports he is doing much better now. Pt reports he has been using his cane all day today, which is the first full day he has used his cane since surgery. Pt reports sleep difficulty at this time secondary to R knee pain. Pt denies tingling or numbness in his LE's at this time. 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 Pt reports he has stairs at home, and is able to negotiate them one step at a time. Pt notes he is limited with all yard work at this time. 1/10 pain while sitting here at rest, 4/10 pain at worst. Pain R TKA: Pain Intensity (Out of 10): 1 Pain Intensity Range: 4 Objective Objective: Neuro: B LE sensation is WNL to light touch Girth at joint line: R knee 50 cm, L knee 45 cm TU seconds sit to stand: 6 reps in 30 sec ROM: L knee 0-7-117, R knee 0-15-112 degrees MMT: L knee flex= 34, ext= 22 #F; R knee flex= 49, ext= 48 #F Balance/Special Test Scores Lower Extremity Functional Score: 26 Goals Goal 1:: I with HEP Goal Time Frame: 2 Weeks Rehabilitation Potential Physical Therapy Diagnosis: R knee pain, weakness, and limited ROM secondary to R TKA Rehabilitation Potential: Good Anticipated Interventions Patient/Client Instruction: Educate patient on: Condition For the Purpose of:: To improve self management Therapeutic Exercise to Include: Strength training, Endurance training, Balance training, Flexibilty training, Gait and locomotor training, Passive ROM, Active ROM and Dynamic Lumbar Stabilization For the Purpose of:: To decrease pain, To increase ROM and To improve muscle performance and motor function Cryotherapy (ice pack, ice massage): Yes For the Purpose of:: To decrease pain Text: Thank you for the opportunity to evaluate your patient. For Medicare and Medicare HMO plans, please review the plan of care and approve it. It will need to be FAXED BACK to us at [phone] for Medicare purposes. For Medicare only, by signing this I certify the plan of care. Please let me know if there are questions or concerns regarding this plan of care. Physician Signature: Date:
--- NOTE | 2024-06-11 09:54 | HP.PTREVAL ---
Re-Evaluation Intro: MAINOR REYES, ESTHER-C, It has been my pleasure to treat ROWAN DAWN over the last 6 visits for R TKA Revision 04/07/24. Please see the progress note below for an update on the physical therapy plan of care! Subjective Subjective: I am sore today. I am not ready to be done with PT Objective Objective/Function: R knee pain ranges from 5-8/10 R knee ROM: 0-10-110 degrees R knee MMT: flex= 40, ext= 21 #F ROM looks good at this time. Pt is still lacking strength and is in a lot of pain at this time. Plan Plan Plan: 06/11/24- Transition to machines at this time. Pt lacks gross LE strength, most notably in the quads. Focus on R LE strengthening and core strengthening at this time. Roll out R quad with the stick for pain. Balance/Gait/Functional tests Balance/Special Test Scores Lower Extremity Functional Score: 26 Goals Goals Goal 1:: I with HEP Goal Time Frame: 2 Weeks Goal Progress: Progressing Goal 2:: Increase R knee ext strength x 20#F to aid with work requirements Goal Time Frame: 4-6 Weeks Goal Progress: New goal Goal 3:: Decrease R knee pain x 50% to aid with ambulation Goal Time Frame: 4-6 Weeks Goal Progress: new goal Anticipated Interventions Anticipated Interventions Patient/Client Instruction: Educate patient on: Condition For the Purpose of:: To improve self management Therapeutic Exercise to Include: Strength training, Endurance training, Balance training, Flexibilty training, Gait and locomotor training, Passive ROM, Active ROM and Dynamic Lumbar Stabilization For the Purpose of:: To decrease pain, To increase ROM and To improve muscle performance and motor function Cryotherapy (ice pack, ice massage): Yes For the Purpose of:: To decrease pain Re-Evaluation Ending Re-evaluation ending: Please do not hesitate to contact me at [phone] by phone or if you have questions or concerns regarding this new plan of care! Sincerely, Ross Sosa, PT, ATC
--- NOTE | 2024-07-18 09:57 | HP.PTREVAL ---
Re-Evaluation Intro: MAINOR REYES, ESTHER-C, It has been my pleasure to treat ROWAN DAWN over the last 14 visits for R TKA Revision 04/07/24. Please see the progress note below for an update on the physical therapy plan of care! Subjective Subjective: I am coming along, but very slowly. Car transfers and ambulation are still rough Objective Objective/Function: R knee pain ranges from 2-8/10 R knee ROM 0-115 degrees R knee MMT: flex= 29, ext= 14 #F Pt is progressing well, but still lacks functional strength for IADL's Plan Plan Plan: 07/18/24- Continue with machines at this time. Pt lacks gross LE strength, most notably in the quads. Focus on R LE strengthening and core strengthening at this time. Roll out R quad with the stick for pain. Balance/Gait/Functional tests Balance/Special Test Scores Lower Extremity Functional Score: 32 Goals Goals Goal 1:: I with HEP Goal Time Frame: 2 Weeks Goal Progress: Progressing Goal 2:: Increase R knee ext strength x 20#F to aid with work requirements Goal Time Frame: 4-6 Weeks Goal Progress: Progressing Goal 3:: Decrease R knee pain x 50% to aid with ambulation Goal Time Frame: 4-6 Weeks Goal Progress: Progressing Anticipated Interventions Anticipated Interventions Patient/Client Instruction: Educate patient on: Condition For the Purpose of:: To improve self management Therapeutic Exercise to Include: Strength training, Endurance training, Balance training, Flexibilty training, Gait and locomotor training, Passive ROM, Active ROM and Dynamic Lumbar Stabilization For the Purpose of:: To decrease pain, To increase ROM and To improve muscle performance and motor function Cryotherapy (ice pack, ice massage): Yes For the Purpose of:: To decrease pain Re-Evaluation Ending Re-evaluation ending: Please do not hesitate to contact me at [phone] by phone or if you have questions or concerns regarding this new plan of care! Sincerely, Ross Sosa, PT, ATC
--- NOTE | 2024-08-21 10:29 | HP.PTREVAL ---
Re-Evaluation Intro: MAINOR REYES, ESTHER-C, It has been my pleasure to treat ROWAN DAWN over the last 23 visits for R TKA Revision 04/07/24. Please see the progress note below for an update on the physical therapy plan of care! Subjective Subjective: I am getting better, but I still struggle with stairs and walking down a slope. Objective Objective/Function: R knee pain ranges from 0-8/10 R knee ROM: 0-5-115 degrees R knee MMT: flex= 34, ext= 20 #F Pt is progressing well toward Rx goals, but contiues to be limited by pain and quad weakness Plan Plan Plan: 08/21/24- Discontinue knee extension machine as it produces R knee pain. Continue with machines at this time. Pt lacks gross LE strength, most notably in the quads. Focus on R LE strengthening and core strengthening at this time. Balance/Gait/Functional tests Balance/Special Test Scores Lower Extremity Functional Score: 32 WOMAC Total Score: 46 WOMAC Percentage: 52.0900 Goals Goals Goal 1:: I with HEP Goal Time Frame: 2 Weeks Goal Progress: Goal Met Goal 2:: Increase R knee ext strength x 20#F to aid with work requirements Goal Time Frame: 4-6 Weeks Goal Progress: Progressing Goal 3:: Decrease R knee pain x 50% to aid with ambulation Goal Time Frame: 4-6 Weeks Goal Progress: Progressing Goal 4:: Pt will negotiate 10 stairs reciprocally with one handrail to aid with IADL's Goal Progress: New goal Anticipated Interventions Anticipated Interventions Patient/Client Instruction: Educate patient on: Condition For the Purpose of:: To improve self management Therapeutic Exercise to Include: Strength training, Endurance training, Balance training, Flexibilty training, Gait and locomotor training, Passive ROM, Active ROM and Dynamic Lumbar Stabilization For the Purpose of:: To decrease pain, To increase ROM and To improve muscle performance and motor function Cryotherapy (ice pack, ice massage): Yes For the Purpose of:: To decrease pain Re-Evaluation Ending Re-evaluation ending: Please do not hesitate to contact me at [phone] by phone or if you have questions or concerns regarding this new plan of care! Sincerely, Ross Sosa, PT, ATC
--- NOTE | 2024-09-18 10:55 | HP.PTREVAL ---
Re-Evaluation Intro: MAINOR REYES, ESTHER-C, It has been my pleasure to treat ROWAN DAWN over the last 31 visits for R TKA Revision 04/07/24. Please see the progress note below for an update on the physical therapy plan of care! Subjective Subjective: I am still very limited with stair negotiation, and my knee really hurts today Objective Objective/Function: R knee ROM: 0-116 degrees R knee MMT: flex= 35, ext= 20 #F R knee pain ranges from 3-8/10 Pt has excellent ROM at this time, but still lacks functional strength to negotiate stairs at home. Pt also continues to have high pain at this time. Plan Plan Plan: 09/18/24- Cont with R LE strengthening with primary focus on quad strengthening Balance/Gait/Functional tests Balance/Special Test Scores Lower Extremity Functional Score: 23 WOMAC Total Score: 46 WOMAC Percentage: 52.0900 Goals Goals Goal 1:: I with HEP Goal Time Frame: 2 Weeks Goal Progress: Goal Met Goal 2:: Increase R knee ext strength x 20#F to aid with work requirements Goal Time Frame: 4-6 Weeks Goal Progress: Progressing Goal 3:: Decrease R knee pain x 50% to aid with ambulation Goal Time Frame: 4-6 Weeks Goal Progress: Progressing Goal 4:: Pt will negotiate 10 stairs reciprocally with one handrail to aid with IADL's Goal Progress: Progressing Anticipated Interventions Anticipated Interventions Patient/Client Instruction: Educate patient on: Condition For the Purpose of:: To improve self management Therapeutic Exercise to Include: Strength training, Endurance training, Balance training, Flexibilty training, Gait and locomotor training, Passive ROM, Active ROM and Dynamic Lumbar Stabilization For the Purpose of:: To decrease pain, To increase ROM and To improve muscle performance and motor function Cryotherapy (ice pack, ice massage): Yes For the Purpose of:: To decrease pain Re-Evaluation Ending Re-evaluation ending: Please do not hesitate to contact me at [phone] by phone or if you have questions or concerns regarding this new plan of care! Sincerely, Ross Sosa, PT, ATC
--- NOTE | 2024-10-13 15:35 | HP.PTREVAL ---
Re-Evaluation Intro: MAINOR REYES, ESTHER-C, It has been my pleasure to treat ROWAN DAWN over the last 38 visits for R TKA Revision 04/07/24. Please see the progress note below for an update on the physical therapy plan of care! Subjective Subjective: Pt reports he has improved a lot, but still really struggles with stairs. Objective Objective/Function: R knee pain is 0/10 currently. R knee MMT: flex= 41, ext= 29 #F R knee ROM: 0-120 degrees Pt continues to display gross weakness in R quads which results in difficulty with transfers and stair negotiation Plan Plan Plan: Recheck or discharge in one month after pt returns from vacation Balance/Gait/Functional tests Balance/Special Test Scores Lower Extremity Functional Score: 31 WOMAC Total Score: 46 WOMAC Percentage: 52.0900 Goals Goals Goal 1:: I with HEP Goal Time Frame: 2 Weeks Goal Progress: Goal Met Goal 2:: Increase R knee ext strength x 20#F to aid with work requirements Goal Time Frame: 4-6 Weeks Goal Progress: Progressing Goal 3:: Decrease R knee pain x 50% to aid with ambulation Goal Time Frame: 4-6 Weeks Goal Progress: Goal Met Goal 4:: Pt will negotiate 10 stairs reciprocally with one handrail to aid with IADL's Goal Progress: Progressing Anticipated Interventions Anticipated Interventions Patient/Client Instruction: Educate patient on: Condition For the Purpose of:: To improve self management Therapeutic Exercise to Include: Strength training, Endurance training, Balance training, Flexibilty training, Gait and locomotor training, Passive ROM, Active ROM and Dynamic Lumbar Stabilization For the Purpose of:: To decrease pain, To increase ROM and To improve muscle performance and motor function Cryotherapy (ice pack, ice massage): Yes For the Purpose of:: To decrease pain Re-Evaluation Ending Re-evaluation ending: Please do not hesitate to contact me at [phone] by phone or if you have questions or concerns regarding this new plan of care! Sincerely, Ross Sosa, PT, ATC
--- NOTE | 2024-11-10 09:29 | HP.PTREVAL ---
Re-Evaluation Intro: MAINOR REYES, ESTHER-C, It has been my pleasure to treat ROWAN DAWN over the last 39 visits for R TKA Revision 04/07/24. Please see the progress note below for an update on the physical therapy plan of care! Subjective Subjective: My knee moves well, but its still not as strong as I would like it to be Objective Objective/Function: R knee pain is 2/10 R knee ROM 0-120 degrees R knee MMT: flex= 38, ext= 32 #F Pt is showing excellent progress at this time. He is still limited with stair negotiation. Pt still lacks functional strength in quads at this time. Plan Plan Plan: 11/10/24- Transition to gym routine with focus on R LE strengthening and balance activity with a strong focus on quad strengthening. Balance/Gait/Functional tests Balance/Special Test Scores Lower Extremity Functional Score: 38 WOMAC Total Score: 46 WOMAC Percentage: 52.0900 Goals Goals Goal 1:: I with HEP Goal Time Frame: 2 Weeks Goal Progress: Goal Met Goal 2:: Increase R knee ext strength x 20#F to aid with work requirements Goal Time Frame: 4-6 Weeks Goal Progress: Progressing Goal 3:: Decrease R knee pain x 50% to aid with ambulation Goal Time Frame: 4-6 Weeks Goal Progress: Goal Met Goal 4:: Pt will negotiate 10 stairs reciprocally with one handrail to aid with IADL's Goal Progress: Progressing Anticipated Interventions Anticipated Interventions Patient/Client Instruction: Educate patient on: Condition For the Purpose of:: To improve self management Therapeutic Exercise to Include: Strength training, Endurance training, Balance training, Flexibilty training, Gait and locomotor training, Passive ROM, Active ROM and Dynamic Lumbar Stabilization For the Purpose of:: To decrease pain, To increase ROM and To improve muscle performance and motor function Cryotherapy (ice pack, ice massage): Yes For the Purpose of:: To decrease pain Re-Evaluation Ending Re-evaluation ending: Please do not hesitate to contact me at [phone] by phone or if you have questions or concerns regarding this new plan of care! Sincerely, Ross Sosa, PT, ATC
== END 2024-11-10 19:00 | disposition home or self-care (01) ==
LOC: PT 09:00
PROVIDERS: PCP Family Medicine; Referring Provider Nurse Practitioner Family; Visit Provider Nurse Practitioner Family
DX: Z96.651 Presence of right artificial knee joint (principal)
CPT/HCPCS: 97110; 97161; 97530

== ENCOUNTER 2024-12-12 09:00 | Outpatient (RCR) | payer MEDICARE, BC, OTHER, SELFPAY ==
--- NOTE | 2024-12-12 10:03 | HP.PTDCSUM ---
Discharge Summary D/C summary: It has been my pleasure to treat ROWAN DAWN referred by ROSA CALI, with the diagnosis of R TKA revision 04/07/24 for a total of 48 visit(s). Discharge Date: Please see the following information for a summary of their discharge status. Subjective Subjective: I am getting better, I still feel like i walk differently and struggle with stairs Pain R knee: Pain Intensity (Out of 10): 2 Overall Improvement % Improvement: 85 Objective Objective/Function: R knee pain ranges from 2-8/10 Stairs: Pt is able to reciprocate 10 stairs with 2 handrails R knee MMT: ext= 28 #F Pt still lacks functional strength in quads at this time Goals Goal 1:: Increase R quad strength x 20#F to aid with stair negotiation Goal Progress: Progressing Goal 2:: Pt will be able to negotiate 10 stairs reciprocally with one handrail to aid with home mobility Goal Progress: Progressing Goal 3:: I with HEP Goal Progress: Goal Met Plan Plan: Discontinue to I gym routine D/C Information d/c sentence: If there are questions or concerns regarding this patient's physical therapy, please feel free to call me at [phone]. Thank you for the referral of this patient. Sincerely, Ross Sosa, PT, ATC Balance/Gait/Functional tests Balance/Special Test Scores Lower Extremity Functional Score: 32 Improvement % Improvement: 85
== END 2024-12-12 12:12 | disposition home or self-care (01) ==
LOC: PT 09:00
PROVIDERS: PCP Family Medicine; Referring Provider Nurse Practitioner Family; Visit Provider Nurse Practitioner Family
DX: Z96.651 Presence of right artificial knee joint (principal)
CPT/HCPCS: 97110; 97530

== ENCOUNTER 2025-02-12 11:30 | Day surgery (SDC) | payer MEDICARE, BC, SELFPAY ==
--- NOTE | 2025-02-09 09:29 | PAT.ANE_ITS ---
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 When Was Last Pacemaker Check QUESTION #4 FULL TEXT: You/Your Family Experience fever (hyperthermia) with Anesthesia Last Oral Intake Last Oral intake: Last Oral Intake NPO since Meds taken in AM with sips of water? Meds patient instructed to take am of surgery PONV PONV - tilt wall supervisor: PONV - tilt wall supervisor Female No 02/09/25 08:40 HX of Motion Sickness No 02/09/25 08:40 HX of N/V After Surgery No 02/09/25 08:40 Non-Smoker Yes 02/09/25 08:40 Duration of Surgery greater No 02/09/25 08:40 than 60 minutes Number of Risk Factors 1 02/09/25 08:40 PONV Score Low Risk 02/09/25 08:40 Height & Weight Height & Weight: Anesthesia: Height & Weight Height 5 ft 9 in 01/12/24 03:14 Respiratory Assessment Respiratory Assessment - tilt wall supervisor: Respiratory Tract Infection Hx - tilt wall supervisor Hx Respiratory Tract Infection No 02/09/25 08:40 STOP Sleep Apnea STOP Sleep Apnea - tilt wall supervisor: STOP Sleep Apnea - tilt wall supervisor Hx Hypertension Yes 02/09/25 08:40 Hx Sleep Apnea Yes 02/09/25 08:40 CPAP Yes 02/09/25 08:40 BIPAP No 02/09/25 08:40 Do you snore loudly (louder than talking or can be heard Do you often feel tired/ fatigued/ sleepy during daytime? Has anyone observed you stop breathing during sleep? STOP Results Positive 02/09/25 08:40 QUESTION #5 FULL TEXT : Do you snore loudly (louder than talking or can be heard through closed doors)? 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 Specify any problems Hx of Preganancy in last 3 N/A 02/09/25 08:40 Months Nurse Filling Out Transfusion [email or web address] 02/09/25 08:40 & Questions: Date: 02/09/25 02/09/25 08:40 Time: 08:43 02/09/25 08:40 Patient unable to answer at this time (ie. confused, unrespo /Reproduction History /Reproductive History - tilt wall supervisor: /Reproductive Hx- tilt wall supervisor Hx Now No 02/09/25 08:40 Gestational Age (in weeks): EDC: Hx Hx Para Hx Section SAB No 02/09/25 08:40 PFSH Medical History (Updated 02/09/25 @ 08:55 by Taj Richardson) Wears dentures Wears glasses Cancer History of steroid therapy Easy bruising Gastric reflux Leg cramps History of edema History of echocardiogram History of stress test Cardiology follow-up encounter Skin cancer Neuropathy Bone fracture Atrial fibrillation Seasonal allergies Coronary artery disease Knee pain Shortness of breath Heart disease HTN (hypertension) Hyperlipidemia Home Medications ?Medication ?Instructions ?Recorded ?Last Taken ?Type diclofenac sodium 1 % topical gel 2 g topical ONCE Unknown History metoprolol tartrate 25 mg tablet 25 mg PO BID 11/24/23 Unknown History multivitamin 1 tab PO DAILY 11/24/23 Unkn own History omeprazole 40 mg capsule,delayed 40 mg PO QDAY 4 Unknown History release rosuvastatin 10 mg tablet 10 mg PO QHS 11/24/23 Unknow n History cholecalciferol (vitamin D3) 50 4,000 unit PO DAILY Unknown History mcg (2,000 unit) tablet (D3 DOTS) acetaminophen 500 mg tablet 500 mg PO BID 12/29/24 Unk nown History (Tylenol Extra Strength) magnesium 250 mg tablet 500 mg PO DAILY 12/29/24 Unk nown History aspirin 81 mg capsule 81 mg PO DAILY 02/09/25 Unkn own History diclofenac sodium 75 mg 75 mg PO BID 02/09/25 Unknow n History tablet,delayed release Allergy/AdvReac Type Severity Reaction Status Date / Time No Known Allergies Allergy Verified 02/09/25 08:37 Family History (Updated 12/29/24 @ 11:41 by Annabelle Toscano) Father Myocardial infarction Heart disease Mother Kidney disease Brother Heart disease Surgical History History of ankle surgery History of heart artery stent History of coronary artery bypass graft History of bilateral knee replacement Social History Smoking Status: Never smoker alcohol intake: never substance use type: does not use Audit: Pertinent Findings Pertinent Findings EKG Perinent findings: 01/12/2024. Sinus rhythm first-degree AV block. Inferior/posterior infarct, age undetermined. Stress test pertinent findings: 01/12/2024. Negative EF 71%. Echo (EF%) pertinent findings: 12/28/2022. EF 60%. Consult pertinent findings: Cardiology 01/15/2025. [facility] cardiology. Raudel. No further workup for upcoming surgery of knee. Or EGD/colonoscopy. Recommendation Anesthesia Recommendation Anesthesia recommendation: OPTIMIZED for anesthesia
[2025-02-12] VITALS (7 sets, daily range): BP systolic 102–124; BP diastolic 68–76; PULSE 49–57; RESP 16–18; TEMP 36.1–36.6; O2SAT 96–98; BMI 38.7
--- NOTE | 2025-02-12 11:47 | PRE.ANES_ITS ---
ASA Classification* ASA Classification ASA Classification: 3 Assessment & Plan Anesthesia* Anesthesia Assessment Anesthesia Assessment: Discussed sedation and/or anesthesia options, risks, benefits, and alternatives with patient/parents/legal guardian/POA. Questions invited. The patient/parents/legal guardian/POA seems to understand and agrees to proceed with anesthesia plan. Reviewed the physical assessment, medical history, allergy history and patient home medications list prior to surgery/procedure/anesthetic and documented any changes. Performed airway and anesthesia risk assessments. Anesthesia Type Anesthesia Type: MAC Anesthesia Focused Assessment* Airway Assessment Mouth opens: >3 cm Mallampati Score: II Labs Anesthesia Preop lab: CBC WBC 6.2 K/mm3 (4.4-11.0) 01/11/24 23:05 01/11/24 RBC 4.66 M/mm3 (4.6-6.2) 01/11/24 23:01/11/24 Hgb 15.4 g/dL (13.0-16.5) 01/11/24 23:01/11/24 Hct 44.7 % (40-54) 01/11/24 23:05 01/11/24 Plt Count 181 K/mm3 (150-450) 01/11/24 23:01/11/24 CHEMISTRY Potassium 3.3 mmol/L (3.5-5.1) L 01/11/24 23:05 01/11/24 Sodium 139 mmol/L (136-145) 01/11/24 23:05 01/11/24 BUN 19 mg/dL (7-18) H 01/11/24 23:05 01/11/24 Creatinine 0.95 mg/dL (0.70-1.30) 01/11/24 23:05 01/11/24 Glucose 159 mg/dL (74-106) H 01/11/24 23:01/11/24 TSH 5.46 uIU/mL (0.358-3.74) H 01/12/24:01/01 COAG Pre-Assessment Diagnosis/Proposed Procedure Planned Operative Procedure(s): colonoscopy, egd Anesthesia History 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 When Was Last Pacemaker Check QUESTION #4 FULL TEXT: You/Your Family Experience fever (hyperthermia) with Anesthesia Last Oral Intake Last Oral intake: Last Oral Intake NPO since Meds taken in AM with sips of water? 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 Female No 02/09/25 08:40 HX of Motion Sickness No 02/09/25 08:40 HX of N/V After Surgery No 02/09/25 08:40 Non-Smoker Yes 02/09/25 08:40 Duration of Surgery greater No 02/09/25 08:40 than 60 minutes Number of Risk Factors 1 02/09/25 08:40 PONV Score Low Risk 02/09/25 08:40 Height & Weight Height & Weight: Anesthesia: Height & Weight Height 5 ft 9 in 01/12/24 03:14 Respiratory Assessment Respiratory Assessment - laborer poultry hatchery: Respiratory Tract Infection Hx - laborer poultry hatchery Hx Respiratory Tract Infection No 02/09/25 08:40 STOP Sleep Apnea STOP Sleep Apnea - laborer poultry hatchery: STOP Sleep Apnea - 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 Has anyone observed you stop breathing during sleep? STOP Results Positive 02/09/25 08:40 QUESTION #5 FULL TEXT : Do you snore loudly (louder than talking or can be heard through closed doors)? 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 Specify any problems Hx of Preganancy in last 3 N/A 02/09/25 08:40 Months Nurse Filling Out Transfusion [email or web address] 02/09/25 08:40 & Questions: Date: 02/09/25 02/09/25 08:40 Time: 08:43 02/09/25 08:40 Patient unable to answer at this time (ie. 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: /Reproductive Hx- laborer poultry hatchery Hx Now No 02/09/25 08:40 Gestational Age (in weeks): EDC: Hx Hx Para Hx Section SAB No 02/09/25 08:40 Active Medications Active Medications: Current Medications Generic Name Dose Route Start Last Admin Trade Name Freq PRN Reason Stop Dose Admin Lactated Ringer's 1,000 mls @ 15 mls/hr 02/12/25 11:45 IV .Q48H KUMAR PFSH Medical History Wears dentures Wears glasses Cancer History of steroid therapy Easy bruising Gastric reflux Leg cramps History of edema History of echocardiogram History of stress test Cardiology follow-up encounter Skin cancer Neuropathy Bone fracture Atrial fibrillation Seasonal allergies Coronary artery disease Knee pain Shortness of breath Heart disease HTN (hypertension) Hyperlipidemia Home Medications ?Medication ?Instructions ?Recorded ?Last Taken ?Type diclofenac sodium 1 % topical gel 2 g topical ONCE Unknown History metoprolol tartrate 25 mg tablet 25 mg PO BID 11/24/23 02/12/25 History multivitamin 1 tab PO DAILY 11/24/23 Unkn own History omeprazole 40 mg capsule,delayed 40 mg PO QDAY 4 02/12/25 History release rosuvastatin 10 mg tablet 10 mg PO QHS 11/24/23 Unknow n History cholecalciferol (vitamin D3) 50 4,000 unit PO DAILY Unknown History mcg (2,000 unit) tablet (D3 DOTS) acetaminophen 500 mg tablet 500 mg PO BID 12/29/24 Unk nown History (Tylenol Extra Strength) magnesium 250 mg tablet 500 mg PO DAILY 12/29/24 Unk nown History aspirin 81 mg capsule 81 mg PO DAILY 02/09/2502/01 History diclofenac sodium 75 mg 75 mg PO BID 02/09/25 Unknow n History tablet,delayed release Allergy/AdvReac Type Severity Reaction Status Date / Time No Known Allergies Allergy Verified 02/12/25 11:44 Family History Father Myocardial infarction Heart disease Mother Kidney disease Brother Heart disease Surgical History History of ankle surgery History of heart artery stent History of coronary artery bypass graft History of bilateral knee replacement Social History Smoking Status: Never smoker alcohol intake: never substance use type: does not use Review of Systems (Anesthesia) ROS Narrative System reviewed and no additional complaints, except as documented.
[2025-02-12] MEDS: Lactated Ringers 1,000 ML 15 ML IV (11:53)
--- NOTE | 2025-02-12 12:30 | EGD_PTH ---
PATIENT: ROWAN DAWN LOC: EN U#:[id number] AGE/SX: 79/M ROOM: RE02/12/[address]: Dr. Sebastián Cruz DO : 1945 BED: DIS: 02/12/2025 SPEC #: [id number] RECD: 02/12/25 14:24 STATUS: AHSAN REEdvin #: [id number] GLENNY: 02/12/25 12:[address]: Sebastián Cruz DEPT: SURGICAL PATHOLOGY RECD BY: Peter Washington ENTERED: 02/12/25 14:46 SP TYPE: EGD BIOPSY JS DR: Dr. Dwayne Luther MD Tissues: A - Duodenum, NOS B - Gastric mucous membrane C - Ileum, NOS D - Cecum, NOS Procedures: Immunohistochemical Stains Surgery Specimen Level IV HEADER OPERATION: Colonoscopy, EGD and biopsy PRE-OP DIAGNOSIS: Anemia TISSUE SUBMITTED: A- Duodenum biopsy, B- Gastric antrum biopsy, C- Terminal ileum biopsy, D- Cecum biopsy MICROSCOPIC DIAGNOSIS A. Duodenum, biopsy: Normal villous architecture with focal slight increase of Intraepithelial lymphocytosis - see note. Note: This pattern of injury is etiologically nonspecific?and the differential diagnosis includes sensitivity to gluten and non-gluten proteins, small intestinal bacterial overgrowth, stasis related changes, infection, protein calorie malnutrition, tropical sprue, and medication injury (NSAIDs, Olmesartan / Benicar, Mycophenolic acid, Idelalisib, for example). If celiac disease is a clinical concern, additional clinical studies, such as tTG-IgA, are recommended. B. Stomach, antrum, biopsy: Antral and oxyntic mucosa with mild chronic inflammation. IHC negative for H.pylori organisms. C. Terminal ileum, biopsy: No significant pathologic change. D. Cecum, biopsy: No specific pathologic change. The histologic features of microscopic colitis are not demonstrated. MICROSCOPIC DESCRIPTION Slides are reviewed. All matched controls reacted appropriately. These tests were developed and their performance characteristics determined by [facility]. They may not have been cleared or approved by the [place]. Food and Drug Administration. The FDA has determined that such clearance or approval is not necessary. The above immunohistochemical/dualISH markers are viewed by the Pathologist. GROSS DESCRIPTION Received in 4 formalin containers labeled the patient's name and date of . Designated as: A. Duodenum BX are 3 emerson tissue fragments, <0.1 cm to 0.6 cm. Entirely submitted in 1 cassette. Smallest fragments may not survive processing. B. Gastric antrum BX are 3 emerson tissue fragments, <0.1 cm to 0.4 cm. Entirely submitted in 1 cassette. Smallest fragment may not survive processing. C. Terminal ileum BX are 2 emerson tissue fragments, 0.4 cm to 0.5 cm. Entirely submitted in 1 cassette. D. Cecum BX are 4 emerson tissue fragments, <0.1 cm to 0.4 cm. Entirely submitted in 1 cassette. Smallest fragments may not survive processing. [facility] [place] 02/12/2025 CPT:[id number]
--- NOTE | 2025-02-12 12:42 | PCM.HP.STD ---
HPI - General General Date of Admission: 02/12/25 Date of Service: 02/12/25 Chief Complaint: Anemia HPI Narrative ALEN DAWN, is a 79 M who presents with the Chief Complaint: anemia Alen was seen by his primary care provider for his yearly appointment and blood work. He as found to have a low hemoglobin of 12.4. This was decreased in comparison to his normal. To his knowledge he has never had a low hemoglobin. He had a fecal occult stool test which was positive however he denies black/tarry stools or bright red blood in his stool. He endorses taking daily ibuprofen and/or naproxen for many years due to chronic joint pain. He is on a daily aspirin due to his hx of cardiac bypass surgery. His last colonoscopy was about 10 years ago and he has never had an EGD. He denies abd pain, n/v, heartburn, or changes in his bowel habits. FOR[facility]LY [facility] Medical History Wears dentures Wears glasses Cancer History of steroid therapy Easy bruising Gastric reflux Leg cramps History of edema History of echocardiogram History of stress test Cardiology follow-up encounter Skin cancer Neuropathy Bone fracture Atrial fibrillation Seasonal allergies Coronary artery disease Knee pain Shortness of breath Heart disease HTN (hypertension) Hyperlipidemia Home Medications ?Medication ?Instructions ?Recorded ?Last Taken ?Type diclofenac sodium 1 % topical gel 2 g topical ONCE 11/24/23 Unknown History metoprolol tartrate 25 mg tablet 25 mg PO BID 11/24/23 02/12/25 History multivitamin 1 tab PO DAILY 11/24/23 Unknown History omeprazole 40 mg capsule,delayed 40 mg PO QDAY 11/24/23 02/12/25 History release rosuvastatin 10 mg tablet 10 mg PO QHS 11/24/23 Unknown History cholecalciferol (vitamin D3) 50 4,000 unit PO DAILY 01/12/24 Unknown History mcg (2,000 unit) tablet (D3 DOTS) acetaminophen 500 mg tablet 500 mg PO BID 12/29/24 Unknown History (Tylenol Extra Strength) magnesium 250 mg tablet 500 mg PO DAILY 12/29/24 Unknown History aspirin 81 mg capsule 81 mg PO DAILY 02/09/25 02/11/25 History diclofenac sodium 75 mg 75 mg PO BID 02/09/25 Unknown History tablet,delayed release Allergy/AdvReac Type Severity Reaction Status Date / Time No Known Allergies Allergy Verified 02/12/25 11:44 Family History Father Myocardial infarction Heart disease Mother Kidney disease Brother Heart disease Surgical History History of ankle surgery History of heart artery stent History of coronary artery bypass graft History of bilateral knee replacement Social History Smoking Status: Never smoker alcohol intake: never substance use type: does not use ROS Constitutional Constitutional: Denies fatigue, fever(s), poor appetite, weight gain or weight loss Gastrointestinal Gastrointestinal: Denies belching, bloating, change in bowel habits, change in stool character, chewing difficulty, coffee ground emesis, constipation, cramping, diarrhea, dyspepsia, dysphagia, early satiety, excessive flatus, fecal incontinence, heartburn, hematemesis, hematochezia, hemorrhoids, loose stools, melena, nausea, odynophagia, rectal bleeding, tenesmus, vomiting or weight changes Vital Signs Vital Signs Vital Signs: 02/12/25 11:44 02/12/25 11:44 Temperature 97.8 F Temperature Source Temporal Pulse Rate 56 L Respiratory Rate 18 Respiratory Pattern Normal Blood Pressure 124/76 H Blood Pressure Mean 92 Blood Pressure Source Monitor Blood Pressure Position Semi-Fowlers Blood Pressure Location Left Arm Pulse Ox 98 Oxygen Delivery Method Room Air Weight Weight: 262 lb 5.601 oz Body Mass Index (BMI) 38.7 Physical Exam Const alert, oriented x3, no apparent distress and healthy appearing General Appearance: cooperative GI normal to inspection, nondistended, normoactive bowel sounds, soft to palpation, non-tender and non-distended Percussion: normal to percussion Rectal Exam: deferred Assessment & Plan Assessment/Plan (1) Fecal occult blood test positive: PLAN: Assessment and Plan Assessment and Plan (1) Anemia: Plan: This is a 79 yo male pt here today for evaluation of new onset anemia. Pt had yearly blood work with his PCP that showed a low hgb of 12.4. He then had a fecal occult stool test that was positive. He denies seeing blood in his stool or melena. He also denies any new sob, lightheadedness, dizziness or fatigue. He does endorse daily use of NSAIDs therefore I have concern for gastric ulcer. He will undergo EGD and colonoscopy to rule out any bleeding in his GI tract. He is agreeable to plan and will f/u after procedures. -Colonoscopy and EGD -f/u after procedures (2) Fecal occult blood test positive: Status: Acute
--- NOTE | 2025-02-12 13:29 | PCM.POST.ANE ---
Anesthesia: Postop Eval I Current Vital Signs Temperature: 97.2 F Pulse Rate: 57 Blood Pressure: 113/74 Respiratory Rate: 16 Pulse Ox: 97 Oxygen Delivery Method: Room Air Assessment Airway patent: Yes Spontaneous unlabored respirations: Yes Mental status: Awake and Calm nausea: No Vomiting: No Anesthesia Complication: No Fluid Hydration Crystalloid volume administer (ml): 600 Total IV fluid infused: 600 Progress Note Anesthesia document: Postop Eval 1 completed: Yes
--- NOTE | 2025-02-12 13:30 | OP.EGD_ITS ---
Patient Name: Alen Bello Procedure Date: 02/12/2025 12:49 PM Date of : 1945 Age: 79 Procedure: Upper GI endoscopy Indications: Iron deficiency anemia secondary to chronic blood loss, Iron deficiency anemia Providers: Sebastián Cruz DO Referring MD: Dwayne Luther Medicines: Monitored Anesthesia Care Patient Profile: This is a 79 year old male. Refer to note in patient chart for documentation of history and physical. Patient has symptoms. Complications: No immediate complications. Procedure: Pre-Anesthesia Assessment: - Prior to the procedure, a History and Physical was performed, and patient medications and allergies were reviewed. The patient is competent. The risks and benefits of the procedure and the sedation options and risks were discussed with the patient. All questions were answered and informed consent was obtained. Patient identification and proposed procedure were verified by the physician in the pre-procedure area. Mental Status Examination: alert and oriented. Airway Examination: normal oropharyngeal airway and neck mobility. Respiratory Examination: clear to auscultation. CV Examination: normal. ASA Grade Assessment: II - A patient with mild systemic disease. After reviewing the risks and benefits, the patient was deemed in satisfactory condition to undergo the procedure. The anesthesia plan was to use monitored anesthesia care (MAC). Immediately prior to administration of medications, the patient was re-assessed for adequacy to receive sedatives. The heart rate, respiratory rate, oxygen saturations, blood pressure, adequacy of pulmonary ventilation, and response to care were monitored throughout the procedure. The physical status of the patient was re-assessed after the procedure. After obtaining informed consent, the endoscope was passed under direct vision. Throughout the procedure, the patient's blood pressure, pulse, and oxygen saturations were monitored continuously. The colonoscope was introduced through the mouth, and advanced to the fourth part of the duodenum. Small bowel enteroscopy was deemed necessary. The upper GI endoscopy was accomplished with ease. Scope In: 12:59:58 PM Scope Out: 1:03:41 PM Total Procedure Duration Time 0 hours 3 minutes 43 seconds Findings: The examined esophagus was normal. Diffuse mild inflammation characterized by congestion (edema), erosions and erythema was found in the entire examined stomach. Biopsies were taken with a cold forceps for histology. Verification of patient identification for the specimen was done. Estimated blood loss was minimal. Biopsies were taken with a cold forceps for Helicobacter pylori testing. Verification of patient identification for the specimen was done. Patchy mild inflammation characterized by erosions was found in the duodenal bulb, in the first portion of the duodenum and in the second portion of the duodenum. Biopsies were taken with a cold forceps for histology. Verification of patient identification for the specimen was done. Estimated blood loss was minimal. Impression: - Normal esophagus. - Acute gastritis. Biopsied. - Chronic duodenitis. Biopsied. Recommendation: - Discharge patient to home. - Resume previous diet. - Continue present medications. - Await pathology results. Procedure Code(s): --- Professional --- 49311, Small intestinal endoscopy, enteroscopy beyond second portion of duodenum, not including ileum; with biopsy, single or multiple CPT copyright 2021 [employer]. All rights reserved. The codes documented in this report are preliminary and upon diet assistant review may be revised to meet current compliance requirements. Sebastián Cruz DO 02/12/2025 1:30:00 PM This report has been signed electronically. Number of Addenda: 0 Note Initiated On: 02/12/2025 12:49 PM
--- NOTE | 2025-02-12 13:31 | OP.CCLET_ITS ---
02/12/2025 Dwayne Luther Re : Upper GI endoscopy procedure for Alen Bello Dear Ashkan This procedure was performed on February. My impressions and recommendations are as follows: Impressions : - Normal esophagus. - Acute gastritis. Biopsied. - Chronic duodenitis. Biopsied. Recommendations : - Discharge patient to home. - Resume previous diet. - Continue present medications. - Await pathology results. My findings are described in the full procedure note, which is enclosed. If I can be of further assistance, please feel free to contact me at . Sincerely, Sebastián Cruz, 02/12/2025 1:30:00 PM This report has been signed electronically.
--- NOTE | 2025-02-12 13:35 | OP.COLON_ITS ---
Patient Name: Alen Bello Procedure Date: 02/12/2025 1:03 PM Date of : 1945 Age: 79 Procedure: Colonoscopy Indications: Iron deficiency anemia Providers: Sebastián Cruz DO Referring MD: Dwayne Luther Medicines: Monitored Anesthesia Care Patient Profile: This is a 79 year old male. Refer to note in patient chart for documentation of history and physical. Patient has symptoms. Last Colonoscopy: several years ago. Complications: No immediate complications. Procedure: Pre-Anesthesia Assessment: - Prior to the procedure, a History and Physical was performed, and patient medications and allergies were reviewed. The patient is competent. The risks and benefits of the procedure and the sedation options and risks were discussed with the patient. All questions were answered and informed consent was obtained. Patient identification and proposed procedure were verified by the physician in the pre-procedure area. Mental Status Examination: alert and oriented. Airway Examination: normal oropharyngeal airway and neck mobility. Respiratory Examination: clear to auscultation. CV Examination: normal. ASA Grade Assessment: II - A patient with mild systemic disease. After reviewing the risks and benefits, the patient was deemed in satisfactory condition to undergo the procedure. The anesthesia plan was to use monitored anesthesia care (MAC). Immediately prior to administration of medications, the patient was re-assessed for adequacy to receive sedatives. The heart rate, respiratory rate, oxygen saturations, blood pressure, adequacy of pulmonary ventilation, and response to care were monitored throughout the procedure. The physical status of the patient was re-assessed after the procedure. After I obtained informed consent, the scope was passed under direct vision. Throughout the procedure, the patient's blood pressure, pulse, and oxygen saturations were monitored continuously. The colonoscope was introduced through the anus and advanced to the terminal ileum. The colonoscopy was performed without difficulty. The patient tolerated the procedure well. The quality of the bowel preparation was adequate. The terminal ileum, ileocecal valve, appendiceal orifice, and rectum were photographed. Scope In: 1:05:48 PM Scope Withdrawal Time 0 hours 8 minutes 9 seconds Scope Out: 1:18:52 PM Total Procedure Duration Time 0 hours 13 minutes 4 seconds Findings: The perianal and digital rectal examinations were normal. Multiple small and large-mouthed diverticula were found in the recto-sigmoid colon and sigmoid colon. An area of mildly congested mucosa was found in the cecum. Biopsies were taken with a cold forceps for histology. Verification of patient identification for the specimen was done. Estimated blood loss was minimal. Patchy mild inflammation characterized by congestion (edema) and erythema was found in the terminal ileum. Biopsies were taken with a cold forceps for histology. Verification of patient identification for the specimen was done. Estimated blood loss was minimal. Impression: - Diverticulosis in the recto-sigmoid colon and in the sigmoid colon. - Congested mucosa in the cecum. Biopsied. - Mild inflammation was found in the ileum secondary to ileitis. Biopsied. Recommendation: - Discharge patient to home. - Resume previous diet. - No repeat colonoscopy. - Continue present medications. Procedure Code(s): --- Professional --- 80611, Colonoscopy, flexible; with biopsy, single or multiple CPT copyright 2021 [employer]. All rights reserved. The codes documented in this report are preliminary and upon hospital coder review may be revised to meet current compliance requirements. Sebastián Cruz DO 02/12/2025 1:35:13 PM This report has been signed electronically. Number of Addenda: 0 Note Initiated On: 02/12/2025 1:03 PM
--- NOTE | 2025-02-12 13:36 | OP.CCLET_ITS ---
02/12/2025 Dwayne Luther Re : Colonoscopy procedure for Alen Bello Dear Ashkan This procedure was performed on February. My impressions and recommendations are as follows: Impressions : - Diverticulosis in the recto-sigmoid colon and in the sigmoid colon. - Congested mucosa in the cecum. Biopsied. - Mild inflammation was found in the ileum secondary to ileitis. Biopsied. Recommendations : - Discharge patient to home. - Resume previous diet. - No repeat colonoscopy. - Continue present medications. My findings are described in the full procedure note, which is enclosed. If I can be of further assistance, please feel free to contact me at . Sincerely, Sebastián Cruz, 02/12/2025 1:35:13 PM This report has been signed electronically.
--- NOTE | 2025-02-12 13:47 | PCM.POSTANE2 ---
Anesthesia Postop Eval I Sum Postop Eval Completion status Anesthesia document: Postop Eval 1 completed: Yes Anesthesia Postop Eval I Summary Anesthesia Postop Eval I Summary: Anesthesia Postop Eval I: Assessment Summary Airway patent Yes 02/12/25 13:31 [email or web address] Spontaneous unlabored Yes 02/12/25 13:31 [email or web address] respirations Mental status Awake,Calm 02/12/25 13:31 [email or web address] nausea No 02/12/25 13:31 [email or web address] Vomiting No 02/12/25 13:31 [email or web address] Anesthesia Postop Eval I: Fluid Summary Crystalloid volume administer 600 02/12/25 13:31 [email or web address] (ml) Colloids volume administered ( ml) Blood Product volume administered (ml) Total IV fluid infused 600 02/12/25 13:31 [email or web address] Anesthesia Postop Eval I: Summary Notes Anesthesia Complication No 02/12/25 13:31 [email or web address] Anesthesia Complication Comment: Post-operative progress note Anesthesia: Postop Eval II Evaluation Mental status: Awake Pain Level: 0 nausea: No Vomiting: No
== END 2025-02-12 14:11 | disposition home or self-care (01) ==
LOC: EN 11:30 → AC 11:35
PROVIDERS: PCP Family Medicine; Referring Provider Family Medicine; Visit Provider Internal Medicine Gastroenterology
PROC: 0DJD8ZZ Inspection of Lower Intestinal Tract, Via Natural or Artificial Opening Endoscopic (ICD-10-PCS; CPT 45378; principal; 2025-02-12 12:25)
DX: K29.00 Acute gastritis without bleeding (principal); K29.80 Duodenitis without bleeding; E78.5 Hyperlipidemia, unspecified; R19.5 Other fecal abnormalities; I10 Essential (primary) hypertension; D50.0 Iron deficiency anemia secondary to blood loss (chronic); G89.29 Other chronic pain; M25.50 Pain in unspecified joint; I25.10 Atherosclerotic heart disease of native coronary artery without angina pectoris; Z95.5 Presence of coronary angioplasty implant and graft; Z79.82 Long term (current) use of aspirin; Z79.899 Other long term (current) drug therapy; K21.9 Gastro-esophageal reflux disease without esophagitis; K57.30 Diverticulosis of large intestine without perforation or abscess without bleeding; K52.9 Noninfective gastroenteritis and colitis, unspecified; K22.10 Ulcer of esophagus without bleeding; K29.50 Unspecified chronic gastritis without bleeding
CPT/HCPCS: 45380; 43239; 88305; 88342; J2405

== ENCOUNTER → 2025-03-03 | Outpatient (CLI) | payer MEDICARE, BC, SELFPAY ==
[2025-03-03 11:21] LABS: Hematocrit 35.9 % (40-54); Hemoglobin 11.7 g/dL (13.0-16.5); Immature Granulocytes Count 0.030 X10^3/uL (0.0-0.0); Mean Corp Hgb Conc 32.6 g/dL (32-36); Mean Corpuscular Volume 90.2 fL (80-94); Mean Platelet Vol. 9.4 fl (6.2-12.0); NRBC Flagged by Analyzer 0 % (0-5); Platelet Count 180 K/mm3 (150-450); RBC Distribution Width CV 16.6 % (11.6-14.6); RBC Distribution Width SD 54.0 fl (35.1-43.9); Red Blood Count 3.98 M/mm3 (4.6-6.2); White Blood Count 4.5 K/mm3 (4.4-11.0)
[2025-03-03 11:56] LABS: Iron 68 ug/dL (65-175)
== END | disposition home or self-care (01) ==
LOC: LAB 10:33
PROVIDERS: PCP Family Medicine; Referring Provider Student in an Organized Health Care Education/Training Program; Visit Provider Student in an Organized Health Care Education/Training Program
DX: R19.5 Other fecal abnormalities (principal); D64.9 Anemia, unspecified
CPT/HCPCS: 36415; 83540; 85025